=== PATIENT | male | born 1960 | race Caucasian/White ===

== ENCOUNTER 2017-10-03 10:04 | Day surgery (SDC) | payer MEDICARE ==
[2017-09-30 13:37] VITALS: BMI 25.6
[2017-10-03] MEDS ORDERED: Lidocaine 1% PF 5 ML VIAL ONE (11:13)
[2017-10-03] MEDS ORDERED: PROPOFOL 200 MG/20 ML VIAL ONE (11:13)
--- NOTE | 2017-10-03 13:53 | OP ---
PREOPERATIVE DIAGNOSIS: Dysphagia, chest pain. DESCRIPTION OF PROCEDURE: After informed consent was obtained, the patient was placed in the left la teral decubitus position. Anesthesia administered per the Anesthesia Department. Forward-viewing en doscope was inserted into the esophagus under direct visualization with ease and passed to the second portion of the duodenum with ease. Second portion of the duodenum and duodenal bulb were normal. P ylorus, antrum, body, fundus, and cardia were normal. Retroflexion in the stomach showed a hiatal he rnia. This hiatal hernia was medium in size. The distal esophagus displayed grade D esophagitis. A 52[place] [employer] dilator was passed with little or no resistance. Reinsertion of the endoscope myla wed no post-dilatation changes. ASSESSMENT: 1. Grade D reflux esophagitis. 2. Medium hiatal hernia. 3. Otherwise, normal esophagogastroduodenoscopy. RECOMMENDATIONS: Switch from H2 roney to proton pump inhibitor.
== END 2017-10-03 14:00 | disposition home or self-care (01) ==
LOC: SDC 10:04
PROVIDERS: ATTEND Internal Medicine Gastroenterology
PROC: 0D758ZZ Dilation of Esophagus, Via Natural or Artificial Opening Endoscopic (ICD-10-PCS; principal; 2017-10-03)
DX: K21.0 Gastro-esophageal reflux disease with esophagitis (principal); K44.9 Diaphragmatic hernia without obstruction or gangrene; R07.89 Other chest pain; Z88.0 Allergy status to penicillin
CPT/HCPCS: 36416; J2001; J2704